=== PATIENT | male | born 1995 | race Caucasian/White ===

== ENCOUNTER 2019-11-23 20:13 | Emergency (ER) | payer BC, OTHER ==
[~2019-11-23] VITALS: Ht 187.9 cm; Wt 104.3 kg
[2019-11-23 20:18] VITALS: BP 159/105
--- OUTSIDE RECORDS SUMMARY | 2019-11-23 20:20 | XMS REPORT | Continuity of Care Document ---
Author Organization Unknown Address Unknown Phone Unavailable Allergies Active Description Code Type Severity Reaction Onset Reported/Identified Relationship to Patient Clinical Status Yes NO NAME AVAILABLE 02108 DRUG N/A N/A Medications There is no data. Problems Date Dx Coded Attending Type Code Diagnosis Diagnosed By 12/20/2018 AYSHA TREADWELL V 591 Pre- employment Physical 12/20/2018 AYSHA TREADWELL V Z02.1 Encounter for pre-employment examination Procedures There is no data. Results Test Result Range COMPREHENSIVE METABOLIC PANEL - 07/20/17 09:24 ALBUMIN 4.3 g/dL 3.4-4.8 ALKALINE PHOSPHATASE 89 U/L 29-122 ALT 19 U/L 10-46 ANION GAP 8 AST 20 U/L 16-37 BILIRUBIN,TOTAL 0.5 mg/dL 0.0-1.2 BUN BLOOD 11 mg/dL 6-20 CALCIUM 9.6 mg/dL 8.7-10.5 CHLORIDE 104 mmol/L 99-111 CO2 29 mmol/L 20-36 CREATININE 0.84 mg/dL 0.60-1.20 EGFR > mL/min >59 GLUCOSE 89 mg/dL 74-106 POTASSIUM 4.2 mmol/L 3.6-4.9 PROTEIN TOTAL 7.0 g/dL 6.4-8.3 SODIUM 141 mmol/L 136-145 LIPID PANEL - 07/20/17 09:24 CHOLESTEROL 138 mg/dL <=200 HDL CHOLESTEROL 37 mg/dL 40-90 LDL CHOLESTEROL 92 mg/dL NON-HDL CHOLESTEROL 101 mg/dL 0-129 TRIGLYCERIDE 47 mg/dL 0-149 URINALYSIS WITH MICROSCOPIC - 07/20/17 0 9:24 APPEARANCE Clear BILIRUBIN UA Negative Negative COLOR Yellow GLUCOSE UA Negative Negative HEMOGLOBIN UA Negative Negative LEUKOCYTE ESTERASE UA Negative Negative NITRATE UA Negative Negative PH UA 6.5 5.0-8.0 PROTEIN UA Negative Negative RBC UA 0-3 /hpf 0-3 SPECIFIC GRAVITY UA 1.021 1.003-1.03 0 SQUAMOUS EPITHELIAL None Seen /hpf UROBILINOGEN UA 0.2 EU/dL 0.2 WBC UA 0-3 /hpf 0-3, >50 [id number] Negative Negative [id number] 2 /lpf CBC WITH AUTO DIFFERENTIAL - 07/20/17 09 :24 BASOPHILS RELATIVE PERCENT 0.8 % 0.0 -2.5 EOSINOPHILS RELATIVE PERCENT 0.8 % < =5.0 HEMATOCRIT 42.1 % 38.8-50.0 HEMOGLOBIN 14.3 g/dL 13.5-17.5 LYMPHOCYTES RELATIVE PERCENT 34.2 % 2 2.0-49.0 MEAN CORPUSCULAR HEMOGLOBIN 30.0 pg 26 .0-34.0 MEAN CORPUSCULAR HEMOGLOBIN CONC 34.0 g/dL 31.0-37.0 MEAN CORPUSCULAR VOLUME 88.3 fL 81.2-9 5.1 MONOCYTES RELATIVE PERCENT 11.0 % 2.0 -9.0 NEUTROPHILS RELATIVE PERCENT 53.2 % 4 0.0-75.0 NUCLEATED RED BLOOD CELLS 0 /100 <=0 PLATELET COUNT 279 10E9/L 150-450 RED BLOOD CELL COUNT 4.77 10E12/L 4.32-5 .72 RED CELL DISTRIBUTION WIDTH 12.1 % 11 .8-15.6 [id number] 4.7 10E9/L 3.5-10.5 7292556 1.62 10E9/L 0.90-2.90 7680656 0.52 10E9/L 0.30-0.90 6986179 0.04 10E9/L 0.05-0.50 0502699 2.51 10E9/L 1.70-7.00 6058615 0.04 10E9/L 0.00-0.30 5756221 0 % Encounters ACCT No. Visit Date/Time Discharge Status Pt. Type Provider Facility Loc./Unit Complaint [id number] 12/20/2018 13:43:34 9 23:59:59 CLS Outpatient AYSHA TREADWELL [id number] 07/20/2017 09:10:33 7 23:59:59 CLS Outpatient [facility] 901 [id number] 07/20/2017 08:16:58 7 23:59:59 CLS Outpatient CRISTIANE SHOEMAKER [facility] 901 [id number] 11/23/2019 20:10:33 Document Registration [id number] 11/23/2019 20:16:[address] Emergency SUYAPA MULLINS, HOLGER [facility] ER TESTICULAR PAIN
--- OUTSIDE RECORDS SUMMARY | 2019-11-23 20:20 | XMS REPORT ---
Author Author Lefty STANTON Organization [employer] Address Unknown Phone Unavailable Care Team Providers Care Caseworker Intake Name Role Phone SANTIAGO STANTON CP Unavailable Allergies, Adverse Reactions, Alerts Substance Reaction Event Type N.K.D.A. Info Not Available Non Drug Allergy Problems Problem Type Condition Code Onset Dates Condition Statu s Assessment Sore throat J02.9 Active Medications Medication Code System Code Instructions Start Date End Date Status Dosage Albuterol Sulfate A [facility] [address]-00 108 (90 Ba se) MCG/ACT Inhalation every 4 hrs 2 puffs as neede d Procedures Procedure Coding System Code Date Office Visit, New Pt., Level 2 CPT-[address] 2014 STREP A ASSAY W/OPTIC CPT-4 08229 May 24 15 Vital Signs Date/Time: May 24, 2015 Temperature 98.6 F BMIPercentile 75.71 % Weight 184.3 lbs Height 72.5 in BMI 24.65 Index Blood Pressure Diastolic 72 mmHg Blood Pressure Systolic 108 mmHg Cardiac Monitoring Heart Rate 80 bpm Wt Percentile 86.78 % Ht Percentile 85.99 % Results Name Result Date Reference Range Unit Abnormali ty Flag STREP A (IN HOUSE) Summary Purpose [employer] Submission
--- NOTE | 2019-11-23 20:29 | ED GU-Male ---
General Chief Complaint: Male Reproductive Stated Complaint: TESTICULAR PAIN Source: patient Exam Limitations: no limitations History of Present Illness Date Seen by Provider: Nov 23, 2019 Time Seen by Provider: 20:29 Initial Comments 24-year-old male who presents to emergency room with complaints of left testicular pain. He reports the pain started around 1000 this morning with a dull ache and that at 1999 the pain became severe rating the pain at 8 out of 10 . He reports a sense of needing to urinate but knows of his bladder is empty. He has moderate swelling to the left testicle and a reddened appearance. Timing/Duration: this evening Severity/Quality: sharp Location: scrotal Radiation: scrotal Activities at Onset: none Allergies and Home Medications Patient Home Medication List Home Medication List Reviewed: Yes Review of Systems Review of Systems Constitutional: see HPI; No chills, No fever Genitourinary: see HPI, urgency, other (left testicular pain) All Other Systemes Reviewed Negative Unless Noted: Yes Past Qrfqwmt-Wxfooa-Eaauyx Hx Past Med/Social Hx: Reviewed Nursing Past Med/Soc Hx Patient Social History Recent Foreign Travel: No Contact w/Someone Who Travel: No Family Medical History Reviewed Nursing Family Hx Physical Exam Vital Signs Vital Signs - First Documented 11/23/19 20:18 Temp 36.2 Pulse 84 Resp 20 B/P (MAP) 159/105 (123) Pulse Ox 100 Capillary Refill : Height, Weight, BMI Height: '" Weight: lbs. oz. kg; BMI Method: General Appearance: WD/WN Cardiovascular: normal peripheral pulses, regular rate, rhythm, no edema, no gallop, no JVD, no murmur Respiratory: chest non-tender, lungs clear, normal breath sounds, no respiratory distress, no accessory muscle use Male: erythema (erythema to the left testicle and mild swelling), testicular tenderness (left), other (cremasteric reflex is present on the right testicle but not as reactive on the left.) Extremities: normal capillary refill Neurologic/Psychiatric: alert, normal mood/affect, oriented x 3 Skin: normal color, warm/dry Progress/Results/Core Measures Suspected Sepsis SIRS Temperature: Pulse: Respiratory Rate: Blood Pressure / Mean: Results/Orders Lab Results Laboratory Tests Test 11/23/19 20:27 Range/Units Urine Color YELLOW Urine Clarity CLEAR Urine pH 6.0 5-9 Urine Specific Chamberlain >=1.030 1.016-1.022 Urine Protein 1+ H NEGATIVE Urine Glucose (UA) NEGATIVE NEGATIVE Urine Ketones NEGATIVE NEGATIVE Urine Nitrite NEGATIVE NEGATIVE Urine Bilirubin NEGATIVE NEGATIVE Urine Urobilinogen 1.0 < = 1.0 MG/DL Urine Leukocyte Esterase NEGATIVE NEGATIVE Urine RBC (Auto) 3+ H NEGATIVE Urine RBC 50-100 H /HPF Urine WBC NONE /HPF Urine Crystals PRESENT H /LPF Urine Amorphous Sediment FEW MANUELA URATES H /LPF Urine Bacteria FEW H /HPF Urine Casts NONE /LPF Urine Mucus MODERATE H /LPF Urine Culture Indicated NO My Orders Orders - [facility] Ua Culture If Indicated (11/23/19 20:27) Neis Karthikeyan Dna Urine Test (11/23/19 20:27) Chlamydia Trachomatis Urine (11/23/19 20:27) Vital Signs/I&O 11/23/19 20:18 Temp 36.2 Pulse 84 Resp 20 B/P (MAP) 159/105 (123) Pulse Ox 100 Capillary Refill : Progress Note : Time: 20:40 Progress Note I have concerns for testicular torsion and I have discussed these with the patient. We do not have ultrasound coverage at this time and he was given the option of [facility] or [facility] for ultrasound. He chose [facility] Departure Impression Primary Impression: Testicular pain Disposition: XFER SHT-TRM HOSP Condition: Stable/Unchanged Transfer Transfer Reason: Exceeds level of care Time Spoke to Accepting Phy: 20:50 Transfer Progress Notes Discussed the case with Dr. Martinez and the need for ultrasound. He agrees to accept the patient. Patient will be going POV. Method of Transfer: Private Vehicle Departure-Patient Inst. Decision time for Depature: 21:25 Referrals: NO,LOCAL PHYSICIAN (PCP/Family) Primary Care Physician Patient Instructions: Testicular Torsion, Adult Add. Discharge Instructions: Go directly to [facility]. All discharge instructions reviewed with patient and/or family. Voiced understanding. LENO PARSIH Nov 23, 2019 20:29
[2019-11-23 20:35] LABS: BILIRUBIN,URINE NEGATIVE (NEGATIVE); CLARITY,URINE CLEAR; COLOR,URINE YELLOW; GLUCOSE, URINE (UA) NEGATIVE (NEGATIVE); KETONES,URINE NEGATIVE (NEGATIVE); LEUKOCYTE ESTERASE ,URINE NEGATIVE (NEGATIVE); NITRITE,URINE NEGATIVE (NEGATIVE); PROTEIN,URINE 1+ (NEGATIVE)
[2019-11-23 20:52] LABS: RBC,URINE 50-100 /HPF
[2019-11-23 20:53] LABS: AMORPHOUS SEDIMENT,UR FEW AMOR URATES /LPF; BACTERIA,URINE FEW /HPF
== END 2019-11-23 21:24 | disposition home or self-care (01) ==
LOC: ER 20:16
DX: N50.812 Left testicular pain (principal)
CPT/HCPCS: 36415; 81000; 87491; 87591; 99283